=== PATIENT | female | born 1950 | race Hispanic/Latino ===

== ENCOUNTER 2024-02-19 13:22 | Outpatient (CLI) | payer MEDICARE | END 2024-02-19 13:23 | disposition home or self-care (01) | LOC: BICRAD 13:22 → SJX 13:23 | PROVIDERS: ATTEND Family Medicine | DX: M79.602 Pain in left arm (principal); M25.512 Pain in left shoulder; M54.6 Pain in thoracic spine; M47.814 Spondylosis without myelopathy or radiculopathy, thoracic region | CPT/HCPCS: 72072 ==

== ENCOUNTER 2024-05-09 17:01 | Outpatient (CLI) | payer MEDICARE | END 2024-05-09 17:02 | disposition home or self-care (01) | LOC: RAD 17:01 | PROVIDERS: ATTEND Family Medicine | DX: R91.8 Other nonspecific abnormal finding of lung field (principal) | CPT/HCPCS: 71046 ==